=== PATIENT | male | born 1945 | race Caucasian/White ===

== ENCOUNTER 2017-05-08 08:20 | Inpatient (IN) | payer OTHER ==
[~2017-05-08] VITALS: Ht 180.3 cm; Wt 97.6 kg
[2017-05-08 09:18] LABS: HEMATOCRIT 45.5 % (39.2-51.8); HEMOGLOBIN 15.6 g/dL (13.7-18.0); WHITE BLOOD COUNT 10.3 x10^3/uL (3.4-10)
[2017-05-08 09:30] LABS: BLOOD UREA NITROGEN 21 mg/dL (7-18)
[2017-05-08] MEDS ORDERED: KETOROLAC 30 MG/1 ML ONE (09:51)
[2017-05-08] MEDS ORDERED: OXYcodone/APAP 5/325MG TABLET ONE (09:51)
[2017-05-08] MEDS ORDERED: OXYcodone/APAP 5/325MG TABLET PO ONE (10:00)
[2017-05-08] MEDS ORDERED: KETOROLAC 30 MG/1 ML IM ONE ×2 (10:00)
[2017-05-08] MEDS ORDERED: AMPICILLIN/SULBACTAM 3 GM in SODIUM CHLORIDE 0.9% 100 ML IV ONE (11:28)
[2017-05-08] MEDS ORDERED: SODIUM CHLORIDE 0.9% 1,000ML IVBOLUS ONE (11:30)
[2017-05-08] MEDS ORDERED: SODIUM CHLORIDE FLUSH 10ML SYR IVF ONE (11:30)
[2017-05-08] MEDS ORDERED: GADOBUTROL 10 MMOL/10 ML PFS ONE (14:13)
[2017-05-08] MEDS ORDERED: SODIUM CHLORIDE 0.9% 1,000 ML IV SCH (18:47)
[2017-05-08] MEDS ORDERED: ONDANSETRON ODT 4 MG PO PRN (19:00)
[2017-05-08] MEDS: AMPICILLIN/SULBACTAM 3 GM in SODIUM CHLORIDE 0.9% 100 ML IV SCH (19:00)
[2017-05-08] MEDS ORDERED: ENALAPRILAT 1.25 MG/ML, 2ML IVPush PRN (19:00)
[2017-05-08] MEDS ORDERED: TEMAZEPAM 15 MG CAPSULE PO PRN (19:00)
[2017-05-08] MEDS ORDERED: DOCUSATE 100 MG CAPSULE PO PRN (19:00)
[2017-05-08] MEDS ORDERED: OXYcodone/APAP 5/325MG TABLET PO PRN (19:00)
[2017-05-08] MEDS ORDERED: synthroid PO (21:42)
[2017-05-09] MEDS: AMPICILLIN/SULBACTAM 3 GM in SODIUM CHLORIDE 0.9% 100 ML IV SCH ×4 (01:20→20:20)
[2017-05-09 01:47] VITALS: BP 109/65
[2017-05-09 05:23] LABS: HEMATOCRIT 42.6 % (39.2-51.8); HEMOGLOBIN 14.6 g/dL (13.7-18.0); WHITE BLOOD COUNT 7.1 x10^3/uL (3.4-10)
[2017-05-09 05:27] LABS: BLOOD UREA NITROGEN 23 mg/dL (7-18)
[2017-05-09 07:10] VITALS: BP 151/82
[2017-05-09] MEDS ORDERED: VANCOMYCIN PER PHARMACY MC PRN (11:00)
[2017-05-09] MEDS ORDERED: PHARMACOKINETIC CONSULTATION MC ONE (11:30)
[2017-05-09] MEDS ORDERED: VANCOMYCIN 1,600 MG in SODIUM CHLORIDE 0.9% 250 ML IV SCH ×2 (11:30→12:00)
[2017-05-09] MEDS ORDERED: PHARMACOKINETIC MONITORING MC PRN (11:30)
[2017-05-09] MEDS ORDERED: OXYcodone/APAP 5/325MG TABLET ONE (13:52)
[2017-05-09] MEDS: OXYcodone/APAP 5/325MG TABLET PO PRN ×2 (13:54→19:29)
[2017-05-09] MEDS: VANCOMYCIN 1,500 MG in SODIUM CHLORIDE 0.9% 250 ML IV SCH (14:42)
[2017-05-09 15:38] VITALS: BP 151/84
[2017-05-09] MEDS: SODIUM CHLORIDE 0.9% 1,000 ML IV SCH (17:03)
[2017-05-09 19:13] VITALS: BP 141/79
[2017-05-10] MEDS: MORPHINE SULFATE 4 MG/ML, 1ML IVPush PRN ×5 (01:49→06:14)
[2017-05-10 02:02] VITALS: BP 146/91
[2017-05-10] MEDS: AMPICILLIN/SULBACTAM 3 GM in SODIUM CHLORIDE 0.9% 100 ML IV SCH ×4 (02:08→20:12)
[2017-05-10 04:41] LABS: HEMATOCRIT 40.6 % (39.2-51.8); HEMOGLOBIN 13.8 g/dL (13.7-18.0); WHITE BLOOD COUNT 8.5 x10^3/uL (3.4-10)
[2017-05-10 04:55] LABS: BLOOD UREA NITROGEN 19 mg/dL (7-18)
[2017-05-10 04:58] LABS: ASPARTATE AMINO TRANSFERASE 19 U/L (15-37)
[2017-05-10] MEDS: SODIUM CHLORIDE 0.9% 1,000 ML IV SCH ×3 (05:22→20:14)
[2017-05-10 07:10] VITALS: BP 145/87
[2017-05-10] MEDS: OXYcodone/APAP 5/325MG TABLET PO PRN ×2 (08:48→21:59)
[2017-05-10] MEDS: methylPREDNISolone SOD SUCC 40 MG/ML IVPush SCH ×2 (13:58→21:59)
[2017-05-10 14:02] VITALS: BP 161/80
[2017-05-10] MEDS: VANCOMYCIN 1,500 MG in SODIUM CHLORIDE 0.9% 250 ML IV SCH (14:32)
[2017-05-10] MEDS ORDERED: KETAMINE 10 MG/ML, 20ML ONE (15:30)
[2017-05-10] MEDS ORDERED: FENTANYL PF 100 MCG/2ML ONE (15:30)
[2017-05-10] MEDS ORDERED: BUPIVACAINE/PF 0.25% ONE (15:34)
[2017-05-10] MEDS ORDERED: PROPOFOL 10 MG/ML, 20ML ONE (15:55)
[2017-05-10] MEDS ORDERED: DEXAMETHASONE 4 MG/ML, 1ML ONE (15:55)
[2017-05-10] MEDS ORDERED: ONDANSETRON 2MG/ML, 2ML ONE (15:55)
[2017-05-10] MEDS ORDERED: PROMETHAZINE 25 MG/ML, 1ML IV PRN (16:30)
[2017-05-10] MEDS ORDERED: FENTANYL PF 100 MCG/2ML IV PRN (16:30)
[2017-05-10] MEDS ORDERED: HYDROmorphone 1 MG/ML, 1ML IV PRN (16:30)
[2017-05-10] MEDS ORDERED: ACETAMINOPHEN 325 MG TABLET PO PRN (16:30)
[2017-05-10] MEDS ORDERED: OXYcodone 5 MG/5 ML ORAL.SOL UDC PO PRN (16:30)
[2017-05-10] MEDS ORDERED: OXYcodone 5 MG/5 ML ORAL.SOL UDC ONE (17:38)
[2017-05-10] MEDS: KETOROLAC 30 MG/1 ML IM SCH (18:36)
[2017-05-10 18:49] VITALS: BP 131/89
[2017-05-10 23:30] VITALS: BP 118/71
[2017-05-11] MEDS: AMPICILLIN/SULBACTAM 3 GM in SODIUM CHLORIDE 0.9% 100 ML IV SCH ×4 (02:22→20:46)
[2017-05-11] MEDS: SODIUM CHLORIDE 0.9% 1,000 ML IV SCH ×3 (02:24→21:00)
[2017-05-11] MEDS: OXYcodone/APAP 5/325MG TABLET PO PRN ×5 (02:26→22:21)
[2017-05-11] MEDS: KETOROLAC 30 MG/1 ML IM SCH ×2 (02:26→10:23)
[2017-05-11 05:09] LABS: BLOOD UREA NITROGEN 21 mg/dL (7-18)
[2017-05-11 05:10] LABS: HEMATOCRIT 43.1 % (39.2-51.8); HEMOGLOBIN 14.7 g/dL (13.7-18.0); WHITE BLOOD COUNT 12.3 x10^3/uL (3.4-10)
[2017-05-11 05:43] VITALS: BP 108/65
[2017-05-11] MEDS: methylPREDNISolone SOD SUCC 40 MG/ML IVPush SCH ×3 (06:05→22:21)
[2017-05-11 07:53] VITALS: BP 131/82
[2017-05-11 13:45] VITALS: BP 134/77
[2017-05-11] MEDS: VANCOMYCIN 1,500 MG in SODIUM CHLORIDE 0.9% 250 ML IV SCH (15:09)
[2017-05-11 18:46] VITALS: BP 134/73
[2017-05-12] MEDS: SODIUM CHLORIDE 0.9% 1,000 ML IV SCH ×3 (00:13→22:49)
[2017-05-12] MEDS: AMPICILLIN/SULBACTAM 3 GM in SODIUM CHLORIDE 0.9% 100 ML IV SCH ×4 (02:33→20:16)
[2017-05-12 03:26] VITALS: BP 140/80
[2017-05-12 05:03] LABS: BLOOD UREA NITROGEN 29 mg/dL (7-18)
[2017-05-12 05:10] LABS: ASPARTATE AMINO TRANSFERASE 20 U/L (15-37)
[2017-05-12 05:13] LABS: HEMATOCRIT 38.1 % (39.2-51.8); HEMOGLOBIN 12.9 g/dL (13.7-18.0); WHITE BLOOD COUNT 19.4 x10^3/uL (3.4-10)
[2017-05-12] MEDS: methylPREDNISolone SOD SUCC 40 MG/ML IVPush SCH ×3 (06:22→20:49)
[2017-05-12] MEDS: OXYcodone/APAP 5/325MG TABLET PO PRN ×2 (06:22→15:11)
[2017-05-12 06:44] VITALS: BP 162/85
[2017-05-12 12:39] VITALS: BP 135/83
[2017-05-12] MEDS: VANCOMYCIN 1,500 MG in SODIUM CHLORIDE 0.9% 250 ML IV SCH (15:30)
[2017-05-12 20:04] VITALS: BP 99/77
[2017-05-13] MEDS: AMPICILLIN/SULBACTAM 3 GM in SODIUM CHLORIDE 0.9% 100 ML IV SCH ×2 (02:10→08:32)
[2017-05-13 03:51] VITALS: BP 157/87
[2017-05-13 07:41] VITALS: BP 161/86
[2017-05-13] MEDS: methylPREDNISolone SOD SUCC 40 MG/ML IVPush SCH (08:32)
[2017-05-13] MEDS: SODIUM CHLORIDE 0.9% 1,000 ML IV SCH (11:34)
[2017-05-13] MEDS ORDERED: ERTAPENEM 1 GM in SODIUM CHLORIDE 0.9% 50 ML IV SCH (13:30)
[2017-05-13 14:18] VITALS: BP 143/84
[2017-05-13] MEDS ORDERED: ALLO300T PO (16:44)
== END 2017-05-13 17:19 | disposition home or self-care (01) | DRG 477 ==
LOC: ED 09:10 → EDIP 18:47 → 4NOR 21:22
PROVIDERS: ADMIT Internal Medicine; ATTEND Internal Medicine
PROC: 0RBP0ZZ Excision of Left Wrist Joint, Open Approach (ICD-10-PCS; 2017-05-10)
PROC: 0RCP0ZZ Extirpation of Matter from Left Wrist Joint, Open Approach (ICD-10-PCS; 2017-05-10)
PROC: 01B40ZZ Excision of Ulnar Nerve, Open Approach (ICD-10-PCS; 2017-05-10)
PROC: 0PBL0ZX Excision of Left Ulna, Open Approach, Diagnostic (ICD-10-PCS; principal; 2017-05-10 15:30)
DX: M00.9 Pyogenic arthritis, unspecified (principal); E43 Unspecified severe protein-calorie malnutrition; N17.9 Acute kidney failure, unspecified; M86.8X4 Other osteomyelitis, hand; E87.1 Hypo-osmolality and hyponatremia; L03.114 Cellulitis of left upper limb; E03.9 Hypothyroidism, unspecified; M19.90 Unspecified osteoarthritis, unspecified site; M65.842 Other synovitis and tenosynovitis, left hand; M1A.9XX1 Chronic gout, unspecified, with tophus (tophi); M77.9 Enthesopathy, unspecified; Z82.49 Family history of ischemic heart disease and other diseases of the circulatory system
CPT/HCPCS: 36415; 76000; 80048; 80053; 80202; 82040; 84550; 85025; 85651; 86140; 86141; 87040; 87070; 87075; 87176; 87205; 88304; 88305; 93005; 96365; 96372; A9585; J0295; J1100; J1335; J1885; J2405; J2704; J3010; J3370; J3490; J2920; J7030; J7050

== ENCOUNTER 2017-05-23 08:01 | Emergency (ER) | payer OTHER ==
[~2017-05-23] VITALS: Ht 180.3 cm; Wt 87.1 kg
[~2017-05-23 08:01] MED LIST: ALLO300T PO; synthroid PO
[2017-05-23 08:02] VITALS: BP 170/89
[2017-05-23] MEDS ORDERED: PRED1TAB PO (08:17)
[2017-05-23] MEDS ORDERED: FAMOTIDINE 20 MG TABLET ONE (08:46)
[2017-05-23 09:00] LABS: HEMATOCRIT 46.9 % (39.2-51.8); HEMOGLOBIN 15.9 g/dL (13.7-18.0); WHITE BLOOD COUNT 17.5 x10^3/uL (3.4-10)
[2017-05-23] MEDS ORDERED: FAMOTIDINE 20 MG/2 ML IVPush ONE (09:00)
[2017-05-23 09:12] LABS: ASPARTATE AMINO TRANSFERASE 23 U/L (15-37); BLOOD UREA NITROGEN 34 mg/dL (7-18)
== END 2017-05-23 09:46 | disposition home or self-care (01) ==
LOC: ED 08:14
DX: R21 Rash and other nonspecific skin eruption (principal); L29.9 Pruritus, unspecified
CPT/HCPCS: 36415; 80053; 85025; 96374; 99284; Q0177; S0028